=== PATIENT | female | born 1995 | race African-American/Black ===

== ENCOUNTER 2017-03-04 18:38 | Emergency (ER) | payer OTHER ==
[~2017-03-04] VITALS: Ht 162.6 cm; Wt 72.6 kg
[~2017-03-04 18:38] MED LIST: BENADRYL25 M1 PO
[2017-03-04] MEDS ORDERED: NO MEDICATIONS (18:47)
== END 2017-03-04 19:34 | disposition home or self-care (01) ==
LOC: SED 18:38
DX: Z32.01 Encounter for pregnancy test, result positive (principal); F17.210 Nicotine dependence, cigarettes, uncomplicated
CPT/HCPCS: 84703; 99282

== ENCOUNTER 2017-03-16 13:35 | Emergency (ER) | payer OTHER ==
[~2017-03-16] VITALS: Ht 162.6 cm; Wt 74.8 kg
[~2017-03-16 13:35] MED LIST changes: +NO MEDICATIONS
== END 2017-03-16 14:47 | disposition home or self-care (01) ==
LOC: SED 13:35
DX: O21.0 Mild hyperemesis gravidarum (principal); F17.200 Nicotine dependence, unspecified, uncomplicated
CPT/HCPCS: 96372; 99283; J2550

== ENCOUNTER 2017-03-22 20:59 | Emergency (ER) | payer OTHER ==
[~2017-03-22] VITALS: Ht 162.6 cm; Wt 70.3 kg
[2017-03-22 23:11] LABS: BASOPHIL# 0.1 X10e3 (0-0.3); BASOPHIL% 0.7 % (0-2.5); DIFF IND NO; EOSINOPHIL% 0.1 % (0.0-7.0); HEMATOCRIT 38.7 % (35.0-45.0); LYMPHOCYTE# 1.5 X10e3 (1.0-3.5); LYMPHOCYTE% 15.7 % (17.0-45.0); MEAN CELL VOLUME 90.1 FL (83-96); MEAN CORPUSCULAR HEMOGLOBIN 30.2 PG (28-34); MEAN CORPUSCULAR HGB CONC 33.5 g/dL (30-36); MEAN PLATELET VOLUME 8.6 FL (6.5-11.5); MONOCYTE# 0.6 X10e3 (0-1.0); MONOCYTE% 6.4 % (3.0-12.0); NEUTROPHIL# 7.6 X10e3 (1.5-7.1); NEUTROPHIL% 77.1 % (40-75); PLATELET COUNT 302 X10e3 (140-420); RED CELL DISTRIBUTION WIDTH 13.2 % (11.0-15.5); WHITE BLOOD COUNT 9.8 X10e3 (4.0-10.5)
[2017-03-22 23:27] LABS: ALBUMIN SERUM 4.5 g/dL (3.5-5.0); BILIRUBIN, DIRECT 0.1 mg/dL (0.0-0.2); BILIRUBIN,INDIRECT 0.4 mg/dL (0.0-0.9); BILIRUBIN,TOTAL 0.5 mg/dL (0.2-2.0); BUN/CREATININE RATIO 11.66; CALCIUM SERUM 9.2 mg/dL (8.4-10.2); CREATININE SERUM 0.6 mg/dL (0.6-1.4); GLOM FILT RATE Estimated 147.9 mL/min (>60); POTASSIUM 3.3 mmol/L (3.5-5.1); PROTEIN TOTAL SERUM 6.1 g/dL (6.0-8.3)
[2017-03-22 23:35] LABS: URINE SOURCE CLEAN CATCH
[2017-03-22 23:37] LABS: URINE APPEARANCE CLEAR; URINE BLOOD NEG (NEG); URINE COLOR YELLOW; URINE GLUCOSE NEG (NORM); URINE LEUKOCYTE ESTERASE NEG (NEG); URINE NITRATE NEG (NEG); URINE PROTEIN 1+ (NEG); URINE SPECIFIC GRAVITY >=1.030 (1.003-1.035)
[2017-03-22 23:40] LABS: MICRO INDICATED? NO; URINE BILIRUBIN NEG (NEG); URINE KETONE 3+ (NEG)
== END 2017-03-23 00:40 | disposition home or self-care (01) ==
LOC: SED 20:59
PROVIDERS: Nurse Practitioner
DX: O21.9 Vomiting of pregnancy, unspecified (principal); Z3A.01 Less than 8 weeks gestation of pregnancy
CPT/HCPCS: 36415; 80048; 80076; 81003; 82150; 83690; 84702; 85025; 96361; 96374; 99284; J2405

== ENCOUNTER 2017-03-29 11:12 | Emergency (ER) | payer OTHER ==
[2017-03-29] MEDS ORDERED: PHENERGAN12.5 M1 PR (11:21)
[2017-03-29] MEDS ORDERED: ZOFRAN PO (11:22)
[2017-03-29 11:37] LABS: URINE APPEARANCE SL CLOUDY; URINE BLOOD 1+ (NEG); URINE COLOR YELLOW; URINE GLUCOSE NEG (NORM); URINE LEUKOCYTE ESTERASE 2+ (NEG); URINE NITRATE NEG (NEG); URINE PROTEIN 2+ (NEG); URINE SOURCE CLEAN CATCH; URINE SPECIFIC GRAVITY >=1.030 (1.003-1.035)
[2017-03-29 11:40] LABS: MICRO INDICATED? YES; URINE BILIRUBIN NEG (NEG); URINE KETONE 3+ (NEG)
[2017-03-29 11:43] LABS: CULTURE INDICATED? YES; URINE BACTERIA 1+ (NEG); URINE RBC 0-2 /[HPF] (0-2); URINE SQUAMOUS EPITHELIAL CELL OCCAS /[HPF]
[2017-03-29 11:54] LABS: AMPHETAMINE NEG (NEG); BARBITURATES NEG (NEG); BENZODIAZEPINES NEG (NEG); COCAINE NEG (NEG); MARIJUANA POS (NEG); OPIATES NEG (NEG); TRICYCLIC ANTIDEPRESSANTS NEG (NEG); U METHADONE NEG (NEG)
[2017-03-29 12:51] LABS: BASOPHIL% 0.5 % (0-2.5); EOSINOPHIL% 0.2 % (0.0-7.0); HEMATOCRIT 35.2 % (35.0-45.0); HEMOGLOBIN 11.8 gm/dL (12.0-16.0); LYMPHOCYTE# 0.8 X10e3 (1.0-3.5); LYMPHOCYTE% 8.8 % (17.0-45.0); MEAN CELL VOLUME 90.3 FL (83-96); MEAN CORPUSCULAR HEMOGLOBIN 30.1 PG (28-34); MEAN CORPUSCULAR HGB CONC 33.4 g/dL (30-36); MONOCYTE# 0.6 X10e3 (0-1.0); NEUTROPHIL# 7.8 X10e3 (1.5-7.1); NEUTROPHIL% 84.5 % (40-75); PLATELET COUNT 264 X10e3 (140-420); RED CELL DISTRIBUTION WIDTH 12.7 % (11.0-15.5); WHITE BLOOD COUNT 9.2 X10e3 (4.0-10.5)
[2017-03-29 12:52] LABS: DIFF IND NO
[2017-03-29 13:29] LABS: ALBUMIN SERUM 4.8 g/dL (3.5-5.0); BILIRUBIN,TOTAL 0.6 mg/dL (0.2-2.0); CALCIUM SERUM 9.7 mg/dL (8.4-10.2); CREATININE SERUM 0.5 mg/dL (0.6-1.4); PROTEIN TOTAL SERUM 8.4 g/dL (6.0-8.3)
[2017-03-29 13:31] LABS: POTASSIUM 2.7 mmol/L (3.5-5.1)
== END 2017-03-29 15:24 | disposition home or self-care (01) ==
LOC: SED 11:12
PROVIDERS: Emergency Medicine
DX: O21.0 Mild hyperemesis gravidarum (principal); O23.41 Unspecified infection of urinary tract in pregnancy, first trimester; Z87.891 Personal history of nicotine dependence; Z3A.01 Less than 8 weeks gestation of pregnancy
CPT/HCPCS: 36415; 80053; 80307; 81003; 84702; 85025; 87086; 96361; 96374; 99284; J2405